=== PATIENT | male | born 1980 | race Caucasian/White ===

== ENCOUNTER → 2016-07-08 | Outpatient (CLI) | payer OTHER ==
--- NOTE | 2016-07-08 16:18 | REP ---
BILATERAL MAMMOGRAM WITH DIAGNOSTIC MAMMOGRAM RIGHT BREAST AND RIGHT BREAST ULTRASOUND: Bilateral mammography is performed in the MLO and CC projections. Reportedly there is a palpable abnormality laterally in the right breast. The area is marked on the skin with a triangular marker. There is moderately dense fibroglandular tissue bilaterally. This has the appearance of bilateral gynecomastia. No discrete mass is seen mammographically and there is no evidence of architectural distortion. No clustered microcalcifications are seen. Real-time sonographic evaluation of the outer right breast is performed. Gynecomastia is present with dense fibroglandular tissue scattered throughout, however at 9 o'clock near the nipple is an oval hypoechoic nodular area which measures 1.2 x 0.5 x 1.4 cm. Significance is uncertain. Recommend ultrasound guided biopsy to exclude underlying mass. IMPRESSION: ACR 4 suspicious. There are findings mammographically and sonographically compatible with bilateral gynecomastia. However in the 9 o'clock region of the right breast is a focal oval hypoechoic nodule measuring 1.2 x 0.5 x 1.4 cm. Ultrasound guided biopsy is recommended. This mammogram was interpreted with the aid of an FDA-approved computer-aided detection system. The patient states he had a clinical breast exam in 06/2016. The patient letter being requested is M4. Signed by Ever Rock MD 07/09/2016 04:39 P
== END ==
LOC: M RAD 13:26
PROVIDERS: ATTEND Family Medicine
DX: N63 Unspecified lump in breast (principal)
CPT/HCPCS: 76642; G0204

== ENCOUNTER → 2016-08-06 | Outpatient (CLI) | payer OTHER ==
[~2016-08-06] MED LIST: LIDOCAINE 1% MDV 20ML VIAL As Ordered ONE
--- NOTE | 2016-08-06 17:30 | REP ---
Digital diagnostic unilateral right breast mammography: Two views. With CAD History: The patient with a history of right breast lump is immediately status post ultrasound-guided needle biopsy with marker clip placement. Marker clip placement views. Comparison mammography July 08, 2016. Findings: Marker clip is seen projecting in the 9 o'clock position of the right breast anterior third. No evidence of hematoma. Impression: Marker clip seen post biopsy in the 9 o'clock position. This mammogram was interpreted with the aid of an FDA-approved computer-aided detection system. Signed by Alvarez Mead MD 08/06/2016 05:36 P
--- NOTE | 2016-08-06 17:34 | REP ---
Ultrasound-guided right breast biopsy procedure. Biopsy marker clip placement. History: Right breast lump. Abnormal sonography from July 08, 2016 showed a hypoechoic area 1.4 x 1.2 x 0.5 cm in diameter in addition to changes consistent with gynecomastia. This did not correspond with the palpable lump which was adjacent at approximately 8 o'clock. Procedure: The patient was interviewed and informed consent was obtained. Preliminary sonography identified the previously noted sonographic findings of hypoechoic area. This area was marked on the overlying skin. After the patient safety time-out was articulated and agreed to, the area was prepped and draped in the usual fashion. 1% lidocaine was injected for anesthesia, 10 ml. Utilizing aseptic precautions, real time sonographic guidance and lidocaine, a 13-gauge suction assisted Mammotome device was passed into the tissue immediately under or deep to the hypoechoic lesion and a total of four suction assisted specimens were attempted to be retrieved. Two of these were successfully retrieved. These were submitted to pathology. A marker clip was placed under ultrasound visualization. The patient tolerated the procedure well. Postprocedure sonography shows no evidence of hematoma or bleeding. Impression: Ultrasound guided needle biopsy right breast mass. Marker clip placement. Signed by Alvarez Mead MD 08/06/2016 05:36 P
== END ==
LOC: M RADPRO 09:48
PROVIDERS: ATTEND Family Medicine
DX: D24.1 Benign neoplasm of right breast (principal); G47.30 Sleep apnea, unspecified; Z72.0 Tobacco use; Z79.899 Other long term (current) drug therapy; Z91.010 Allergy to peanuts
CPT/HCPCS: 19083; 88305; G0206